=== PATIENT | male | born 1965 | race African-American/Black ===

== ENCOUNTER 2016-09-20 03:58 | Emergency (ER) | payer OTHER ==
--- NOTE | ~2016-09-20 | CR173 ---
[facility] A Service of [facility] & [facility] RADIOLOGY TEXT RESULTS PATIENT: JOHNATHON GABRIEL LOCATION: [facility] : 61 UNIT #: [id number] AGE: [address]: Edward Padilla MD SEX: M ORDER DR: [id number] [facility] [address] [place], [place] [address] [id number] MR#: [id number] Acc #: [id number] NAME: JOHNATHON GABRIEL : 1965 SEX: M STUDY DATE/TIME: 09/20/2016 6:05 UNIT: [facility] ROOM: STUDY DESCRIPTION: CR Knee 3 Views Rt Attending Physician: Edward Padilla M.D. Ordering Physician: Edward Padilla M.D. Primary Care Physician: Primary Care Physician No MEDICAL IMAGING REPORT This report is preliminary unless electronic signature is present EXAM Right knee 09/20/2016 INDICATIONS Knee pain and swelling for 3 days. Possible trauma. FINDINGS 3 views of the right knee were obtained. No fracture or malalignment is seen. There is some very mild patellofemoral osteoarthritis and there is a small joint effusion. IMPRESSION Mild patellofemoral osteoarthritis with a small joint effusion. Otherwise negative. Dictated by... Luther Win Jr., M.D. THIS IS AN ELECTRONICALLY VERIFIED REPORT Luther Win Jr., M.D. at 09/20/2016 3:53 PM EDSON/jessica TD: 09/20/2016 10:14 JOB #: [id number] MEDICAL IMAGING REPORT Page 1 of 1 COPY
== END 2016-09-20 07:32 | disposition home or self-care (01) ==
LOC: CED 03:58
DX: M25.561 Pain in right knee (principal); M25.462 Effusion, left knee; I10 Essential (primary) hypertension; Z98.890 Other specified postprocedural states
CPT/HCPCS: 73562; 99283

== ENCOUNTER → 2016-10-04 | Outpatient (CLI) | payer OTHER ==
--- NOTE | ~2016-10-04 | MR113 ---
[facility] A Service of [facility] & [facility] RADIOLOGY TEXT RESULTS PATIENT: MAXI GABRIEL LOCATION: [facility] : 61 UNIT #: [id number] AGE: [address]: Yazan Murcia MD SEX: M ORDER DR: [id number] [facility] [address] [place], [place] [address] [id number] O MR#: [id number] Acc #: [id number] NAME: MAXI GABRIEL : 1965 SEX: M STUDY DATE/TIME: 10/04/2016 17:12 UNIT: [facility] ROOM: STUDY DESCRIPTION: MR Lumbar Wo Contrast Attending Physician: Yazan Murcia M.D. Ordering Physician: Yazan Murcia M.D. Primary Care Physician: Yazan Murcia M.D. MRI CENTER REPORT This report is preliminary unless electronic signature is present. EXAM Lumbar spine MRI without contrast DATE OF STUDY 10/04/2016 COMPARISON Prior MRI dated 02/04/2014. CLINICAL HISTORY Chronic low back and right leg pain for 10 years. FINDINGS There is a lumbar levoscoliosis unchanged since the prior MRI. There is also a grade 1 anterolisthesis at L4-5 without pars defect. Bone marrow signal is within normal limits. The distal cord and conus are normal in position and appearance. The paraspinous soft tissues are unremarkable. At L1-2, there is no canal stenosis and minimal, if any, bilateral foraminal narrowing related to facet arthropathy. At L2-3, there is facet arthropathy and perhaps a slight disc bulge. There is mild canal narrowing, and borderline to mild bilateral foraminal narrowing. At L3-4, disc and endplate change and facet arthropathy cause at least moderate canal stenosis, if not moderate to severe, unchanged since the prior study. There is at least moderate right and [id number] left foraminal stenosis also unchanged. At L4-5, there is anterolisthesis, facet arthropathy, and moderate to severe canal stenosis, again unchanged since the prior study, but there is no more than mild left foraminal narrowing and at least moderate right STS. [facility] A Service of [facility] & [facility] RADIOLOGY TEXT RESULTS PATIENT: MAXI GABRIEL LOCATION: [facility] : 61 UNIT #: [id number] AGE: [address]: Yazan Murcia MD SEX: M ORDER DR: foraminal narrowing. If not moderate to severe, unchanged since the prior exam. At L5-S1, there is no canal stenosis but there is mild to moderate right and left foraminal stenosis. In addition, the S1 and S2 nerve roots appear slightly thickened within the thecal sac. That appearance is unchanged since the prior study as well. There is no peripheral nerve root thickening. IMPRESSION 1. Degenerative grade 1 anterolisthesis at L4-5 and levoscoliosis. Both unchanged. 2. Canal stenosis. Moderate or moderate to severe at 3-4 and 4-5, unchanged, with accompanying stable foraminal compromise as well. 3. Thickened appearance of the S1 and S2 nerve roots within the thecal sac at the L5-S1 disc level. This is a stable appearance since the prior study as well, and may simply be related to the canal stenosis at levels above, as there is no evidence of peripheral extraforaminal nerve root thickening which is hallmark of chronic inflammatory demyelinating poly neuropathy, and again those findings are not seen here. No significant change or new abnormality when compared to 02/04/2014. Dictated by... Maxi Brown M.D. THIS IS AN ELECTRONICALLY VERIFIED REPORT Maxi Brown M.D. at 10/08/2016 3:58 PM TEV/aa TD: 10/07/2016 11:38 JOB #: [id number] MRI CENTER REPORT Page 1 of 1 COPY
== END | disposition home or self-care (01) ==
LOC: CMRI 16:42
DX: M54.5 Low back pain (principal); M43.16 Spondylolisthesis, lumbar region; M48.06 Spinal stenosis, lumbar region
CPT/HCPCS: 72148